=== PATIENT | male | born 1970 | race Two or more races ===

== ENCOUNTER → 2017-01-28 | Outpatient (CLI) | payer OTHER ==
--- NOTE | 2017-01-28 08:25 | RAD ---
Indication history of asthma. Cough. Duration of symptoms 5 days. PA and lateral views of the chest were obtained. No prior imaging is available. There is generalized cardiomegaly. There is no congestive heart failure. A focal process in either lung is not seen. Significant pleural fluid is not present. There is no pneumothorax. Bony structures appear grossly intact. IMPRESSION: Mild cardiomegaly. No acute or focal process seen in the chest
== END | disposition home or self-care (01) ==
LOC: DXRADRC 07:41
PROVIDERS: ATTEND Physician Assistant Medical
DX: J45.909 Unspecified asthma, uncomplicated (principal); I51.7 Cardiomegaly
CPT/HCPCS: 71020